=== PATIENT | male | born 1935 | race Caucasian/White ===

== ENCOUNTER 2022-07-14 07:06 | Day surgery (SDC) | payer MEDICARE ==
[2022-07-12 12:42] LABS: BASOPHILS % (AUTO) 0.7 % (0.0-5.0); EOSINOPHILS % (AUTO) 3.3 % (0.0-8.0); HEMATOCRIT 48.4 % (42-54); LYMPHOCYTES % (AUTO) 15.3 % (21.0-51.0); MEAN CORPUSCULAR HEMOGLOBIN 25.2 pg (27.0-33.0); MEAN CORPUSCULAR HGB CONC 30.8 g/dL (32.0-36.0); MEAN CORPUSCULAR VOLUME 81.8 fL (79-99); MONOCYTES % (AUTO) 13.4 % (3.0-13.0); NEUTROPHILS % (AUTO) 66.9 % (40.0-77.0); PLATELET COUNT (AUTO) 299 K/uL (130-400); RED BLOOD CELL COUNT(AUTO) 5.92 MIL/uL (4.50-6.20); RED CELL DISTRIBUTION WIDTH 17.2 % (11.0-15.5); WHITE BLOOD COUNT (AUTO) 8.3 K/uL (4.8-10.8)
[2022-07-12 12:43] LABS: APPEARANCE,URINE CLEAR (CLEAR); BILIRUBIN,URINE NEGATIVE (NEGATIVE); COLOR,URINE LIGHT-YELLOW (YELLOW); GLUCOSE, URINE (UA) NEGATIVE (NEGATIVE); KETONES,URINE NEGATIVE (NEGATIVE); LEUKOCYTE ESTERASE ,URINE 75 Leu/uL (NEGATIVE); NITRATE,URINE NEGATIVE (NEGATIVE); OCCULT BLOOD,URINE NEGATIVE (NEGATIVE); PH,URINE 5.5 (5.0-8.0); PROTEIN,URINE NEGATIVE (NEGATIVE); UROBILINOGEN,URINE 0.2 mg/dL (0.2-1.0)
[2022-07-12 12:47] LABS: BACTERIA,URINE RARE /HPF (None Seen); MUCUS,URINE RARE LPF (None Seen); SQUAMOUS EPITHELIAL CELL,UR RARE /HPF (0-2)
[2022-07-12 12:58] LABS: CREATININE 1.8 mg/dL (0.5-1.5); POTASSIUM 4.8 mmol/L (3.5-5.1)
[2022-07-12 14:56] VITALS: BP 152/77
[~2022-07-14] VITALS: Ht 180.3 cm; Wt 72.9 kg
[2022-07-14] VITALS (12 sets, daily range): BP systolic 113–159; BP diastolic 53–86
[~2022-07-14 07:06] MED LIST: GENTAMICIN 80 MG/NS 100 ML PB 100 ML IV SCH; LEVO-70 PO
[2022-07-14] MEDS ORDERED: LACTATED RINGERS 1000ML 1,000 ML IV ONE (07:25)
[2022-07-14] MEDS ORDERED: CEFTRIAXONE 1G VIAL ONE (07:25)
[2022-07-14] MEDS ORDERED: ASPI-1026 PO (07:50)
[2022-07-14] MEDS ORDERED: MULT-1367 PO (07:50)
[2022-07-14] MEDS ORDERED: CALC-1105 PO (07:50)
[2022-07-14] MEDS ORDERED: ACET-66 PO (07:50)
[2022-07-14] MEDS ORDERED: PROPOFOL 10 MG/ML 20ML VIAL IV ONE (11:01)
[2022-07-14] MEDS ORDERED: MIDAZOLAM HCL 1 MG/ML 2ML VIAL ONE (11:01)
[2022-07-14] MEDS ORDERED: FENTANYL CITRATE PF 50 MCG/1 ML 2ML VIAL ONE (11:02)
== END 2022-07-14 13:10 | disposition home or self-care (01) ==
LOC: DAH 07:06
PROVIDERS: ATTEND Urology
DX: R97.20 Elevated prostate specific antigen [PSA] (principal); N40.1 Benign prostatic hyperplasia with lower urinary tract symptoms; R35.1 Nocturia; Z20.822 Contact with and (suspected) exposure to COVID-19; Z88.8 Allergy status to other drugs, medicaments and biological substances; Z88.0 Allergy status to penicillin; Z88.3 Allergy status to other anti-infective agents; Z88.5 Allergy status to narcotic agent; Z91.018 Allergy to other foods; Z79.899 Other long term (current) drug therapy; Z87.891 Personal history of nicotine dependence; Z98.890 Other specified postprocedural states
CPT/HCPCS: 55700; 80048; 85025; 87088; 87426; 81001; 36415; 93005; 76872; A6260; A4663; J7120; J3010; J0696; J2250; J2704; A4215 ×2; A4649; A4223; A4222; A4221; A4600; J1580

== ENCOUNTER → 2023-06-20 | Outpatient (CLI) | payer MEDICARE ==
[~2023-06-20] MED LIST changes: +ACET-66 PO; +ASPI-1026 PO; +CALC-1105 PO; +GADOTERATE MEGLUMINE 10 MMOL/20 ML VIAL IV ONE; -GENTAMICIN 80 MG/NS 100 ML PB 100 ML IV SCH; +MULT-1367 PO
== END | disposition home or self-care (01) ==
LOC: RAH 10:37
PROVIDERS: ATTEND Family Medicine
DX: G31.89 Other specified degenerative diseases of nervous system (principal); G44.52 New daily persistent headache (NDPH); R26.81 Unsteadiness on feet; R42 Dizziness and giddiness
CPT/HCPCS: 70553; A9575